=== PATIENT | male | born 1985 | race Two or more races ===

== ENCOUNTER → 2016-09-27 | Outpatient (CLI) | payer OTHER ==
[2015-12-27 21:00] VITALS: BP 111/62
[~2016-09-27] MED LIST: EPIN0.3A4 IJ; PRED50TA PO
--- NOTE | 2016-09-27 10:14 | KCIC ---
Exam: Abdomen ultrasound Indication: Elevated Liver enzymes Technique: Multiple realtime grayscale sonographic images were obtained over the abdomen. Static images were submitted for interpretation. Comparisons: None Findings: Midline structures including the pancreas aorta and IVC are poorly visualized due to overlying bowel gas. Liver, the visualized portions of the abdominal aorta are normal in caliber. The liver is normal in size measuring 17.9cm. There is mild increased echogenicity of the hepatic parenchyma diffuse fatty infiltration. No focal lesions are identified. The gallbladder is nondistended. There is no evidence for cholelithiasis. There is no wall thickening, or pericholecystic fluid. The common bile duct cannot be visualized and is probably normal in caliber. The Right kidney is normal in size measuring 11.5 x 6.1 x 5.2cm. There is no evidence for mass, nephrolithiasis, or hydronephrosis. The Left kidney is normal in size measuring 11.8 x 5.5 x 5.3cm. There is no evidence for mass, nephrolithiasis, or hydronephrosis. The spleen is normal in size measuring 8 cm. No ascites is identified Impression: Diffuse fatty infiltration of the liver. Electronically signed by: Konrad Carballo MD (09/27/2016 10:11 AM)
== END | disposition home or self-care (01) ==
LOC: KCIC US 08:37
PROVIDERS: ATTEND Family Medicine
DX: K76.0 Fatty (change of) liver, not elsewhere classified (principal)
CPT/HCPCS: 76700